=== PATIENT | male | born 1990 | race Two or more races ===

== ENCOUNTER 2017-04-18 12:53 | Emergency (ER) | payer SELFPAY ==
[~2017-04-18] VITALS: Ht 175.3 cm; Wt 100.7 kg
[2017-04-18 13:08] VITALS: BP 147/84
[2017-04-18 14:08] LABS: AMPHETAMINE SCREEN, URINE Negative (Negative); BARBITURATE SCREEN, URINE Negative (Negative); BENZODIAZEPINE SCREEN, URINE Negative (Negative); CANNABINOID SCREEN, URINE Negative (Negative); COCAINE SCREEN, URINE Negative (Negative); METHADONE SCREEN, URINE Negative (Negative)
[2017-04-18 14:16] LABS: OPIATE SCREEN, URINE Negative (Negative)
== END 2017-04-18 15:34 | disposition home or self-care (01) ==
LOC: ED 15:28
DX: Z02.83 Encounter for blood-alcohol and blood-drug test (principal)
CPT/HCPCS: 36415; 80307; 99284